=== PATIENT | female | born 1965 ===

== ENCOUNTER 2016-12-24 06:29 | Inpatient (IN) | payer OTHER ==
[2016-12-20 09:29] VITALS: BMI 35.3
[2016-12-24] MEDS ORDERED: Midazolam 2 MG/2 ML VIAL ONE (08:06)
[2016-12-24] MEDS ORDERED: Propofol 10 mg/ml Inj (20 ML) ONE (08:06)
[2016-12-24] MEDS ORDERED: ceFAZolin IV 1 gm in Dextrose 0 ML IVPB ONE (08:12)
[2016-12-24] MEDS ORDERED: Succinylcholine Chloride 20 mg/ml Syr (5 ml) IV ONE (08:13)
[2016-12-24] MEDS ORDERED: Rocuronium 10 mg/ml (5 ml) ONE (08:13)
[2016-12-24] MEDS ORDERED: Lactated Ringer's 1,000 ML IV ONE ×2 (08:15→10:00)
[2016-12-24] MEDS ORDERED: metroNIDAZOLE IV 500 mg/100 ml 100 ML ONE (08:18)
[2016-12-24] MEDS ORDERED: ceFAZolin IV 1 gm in Dextrose 50 ML IVPB ONE ×2 (08:23→08:24)
[2016-12-24] MEDS ORDERED: Phenylephrine 10 mg/ml Inj ONE (09:31)
[2016-12-24] MEDS ORDERED: Neostigmine Methylsulfate 3mg/3ml Syringe IV ONE (09:52)
--- NOTE | 2016-12-24 10:33 | OP ---
PROCEDURE DATE: 12/24/2016 PREOPERATIVE DIAGNOSIS: Abnormality at base of appendiceal orifice. POSTOPERATIVE DIAGNOSIS: Abnormality at base of appendiceal orifice. PROCEDURE CARRIED OUT: Right cecectomy. SURGEON: Kahlil Ponce Jr., MD. PROPERTY AND EQUIPMENT CLERK: Dr. Garcia and Dr. Darwin Gross, residents. ANESTHESIOLOGIST: Mr. Roth. INDICATIONS: A 51-year-old woman found to have an abnormality at the base of her appendix. OPERATIVE FINDINGS: General abdominal exploration was unremarkable. The left ovary, however, was up against the anterior abdominal wall, and there were extensive intra-abdominal adhesions at the umbil icus. The liver and the rest of the viscera that were identified appeared normal. There was no evid ence of any abnormality in her liver that we could see, or on the rest of the peritoneal cavity excep t for the left ovary up against the abdominal wall. OPERATIVE FINDINGS: The appendix was mobilized. The base of the appendix, including the cecum was a mputated, and at this time, the margins appeared to be relatively close when we examined the specimen , but there was no evidence of any tumor at the base of the cecum. We were able to easily put a clam p through this without any abnormalities being visible. We then turned our attention and removed and a larger portion of the cecum with an additional margin being taken, and no gross abnormalities being detected. After this had been done, we then checked th is again and again for hemostasis, and there was no question as to hemostasis, as the blood loss was approximately 15 mL, and we then closed the ports, which had been placed. DESCRIPTION OF PROCEDURE: The patient was given general anesthesia, intravenous antibiotics. Huerta catheter inserted. Three trocars were inserted initially ____ a 5-mm trocar just to the left of midl ine to visualize the abdominal cavity, and used a Veress needle. After we had done this, we placed 2 additional trocars to allow us to have good triangulated vision of the cecal area. The appendix was grasped and visualized, mobilized up into the anterior portion of the abdominal cavity. The entranc e of the ileum into the cecum was identified, and then this was divided relatively close to the appen hitesh. When we examined the specimen, there was no abnormality detected in the same. We then went to further with an additional margin of approximately an inch. This was not examined, b ut simply taken as an additional margin. After checking again for hemostasis and removing the irriga tion fluid, we then closed the abdomen. Prior to beginning this, there were extensive adhesions at t he umbilicus, which had to be lysed. So the procedure carried out was right cecectomy. Partial removal of colon and lysis of adhesions in tra-abdominal. Kahlil Ponce Jr., MD cc:Landon Kilpatrick MD; Angelo Brock MD 56 TT: 12/24/2016 10:23:44 jn
[2016-12-24] MEDS ORDERED: Oxycodone/Acetaminophen 5/325 mg Tab PO PRN ×2 (10:36→10:41)
[2016-12-24] MEDS ORDERED: HYDROmorphone 0.5 mg/0.5 ml ISec IVP PRN ×2 (10:37→13:51)
[2016-12-24] MEDS ORDERED: Lactated Ringer's 1,000 ML IV SCH (10:45)
--- NOTE | 2016-12-24 10:52 | PCM.SURG1 ---
Surgeon's Initial Post Op Note - Surgeon's Notes Surgeon: Dr. Ponce Manager Of Warehouse: Dr. Garcia, Dr. Gross Type of Anesthesia: General Endo Pre-Operative Diagnosis: cecal polyp Operative Findings: see operative report Post-Operative Diagnosis: cecal polyp Operation Performed: laparoscopic lysis of adhesions, appendectomy and partial cecectomy Specimen/Specimens Removed: appendix and portion of cecum Estimated Blood Loss: EBL {In ML}: 15 Blood Products Given: N/A Drains Used: No Drains Post-Op Condition: Good Date of Surgery/Procedure: 12/24/16 Time of Surgery/Procedure: 10:52
[2016-12-24] MEDS: (Novolin R) Insulin Human Regular 100 units/ml vial SC SCH ×2 (11:59→22:35)
[2016-12-24] MEDS ORDERED: HYDROmorphone 0.5 mg/0.5 ml ISec ONE (13:54)
[2016-12-24] MEDS ORDERED: Sodium Chloride 0.9% 1,000 ML IV ONE (16:00)
[2016-12-24] MEDS: ceFAZolin IV 1 gm in Dextrose 50 ML IVPB SCH (16:54)
[2016-12-24] MEDS: metroNIDAZOLE IV 500 mg/100 ml 100 ML IVPB SCH (17:20)
[2016-12-24] MEDS: Sodium Chloride 0.9% 1,000 ML IV SCH (21:08)
[2016-12-25] MEDS: metroNIDAZOLE IV 500 mg/100 ml 100 ML IVPB SCH (00:14)
[2016-12-25] MEDS: ceFAZolin IV 1 gm in Dextrose 50 ML IVPB SCH ×2 (00:14→09:20)
[2016-12-25] MEDS: Sodium Chloride 0.9% 1,000 ML IV SCH ×2 (02:45→05:47)
[2016-12-25 06:21] LABS: BASO % 0.2 % (0.0-2.0); EOS # 0.1 K/uL (0.0-0.7); EOS % 0.6 % (0.0-4.0); HEMATOCRIT 40.9 % (34.0-47.0); LYMPH # 1.8 K/uL (1.0-4.3); MEAN CELL VOLUME 84.9 fL (81.0-99.0); MEAN CORPUSCULAR HEMOGLOBIN 28.4 pg (27.0-31.0); MEAN CORPUSCULAR HGB CONC 33.5 g/dL (33.0-37.0); MEAN PLATELET VOLUME 9.5 fL (7.2-11.7); MONO # 0.6 K/uL (0.0-0.8); MONO % 5.7 % (0.0-10.0); RED CELL DISTRIBUTION WIDTH 14.9 % (11.5-14.5); WHITE BLOOD COUNT 10.6 K/uL (4.8-10.8)
[2016-12-25 06:29] LABS: CHLORIDE 99 mmol/L (98-107); SODIUM 141 mmol/L (132-148)
[2016-12-25 06:31] LABS: BILIRUBIN,TOTAL 0.8 mg/dL (0.2-1.3); GFR AFRICAN-AMERICAN > 60
[2016-12-25 06:32] LABS: ALB/GLOB RATIO 1.2 (1.0-2.1); ALKALINE PHOSPHATASE 40 U/L (38-126); ALT/SGPT 35 U/L (9-52); AST/SGOT 17 U/L (14-36); BLOOD UREA NITROGEN 13 mg/dL (7-17); CARBON DIOXIDE 28 mmol/L (22-30); GLUCOSE,RANDOM 119 mg/dL (65-105); TOTAL PROTEIN 5.9 g/dL (6.3-8.3)
[2016-12-25 06:33] LABS: CALCIUM 8.2 mg/dl (8.6-10.4)
[2016-12-25] MEDS: (Novolin R) Insulin Human Regular 100 units/ml vial SC SCH ×2 (07:47→11:50)
[2016-12-25 08:02] VITALS: BP 178/97; PULSE 65; RESP 18; TEMP 99.2; O2SAT 94
[2016-12-25] MEDS ORDERED: Enoxaparin 40 mg Syringe SC SCH (10:00)
--- NOTE | 2016-12-25 11:35 | CP.PCM.PN ---
Subjective - Date & Time of Evaluation Date of Evaluation: 12/25/16 Time of Evaluation: 11:32 - Subjective Subjective: Surgery: Dr. Ponce Patient doing well today. She is requesting to go home. Pain controlled. Diet tolerated. Denies n/v/f/c. Patient has been OOB w/o difficulty. Objective - Vital Signs/Intake and Output Vital Signs (last 24 hours): Temp Pulse Resp BP Pulse Ox 99.2 F 65 18 178/97 H 94 L 12/25/16 07:27 12/25/16 07:27 12/25/16 07:27 12/25/16 09:19 12/25/16 07:27 Intake and Output: 12/25/16 12/25/16 06:59 18:59 Intake Total 1200 Balance 1200 - Medications Medications: Current Medications Acetaminophen (Tylenol 325mg Tab) 650 mg PO Q6 PRN PRN Reason: Fever >100.4 F Last Admin: 12/25/16 08:11 Dose: 650 mg Enalapril Maleate (Vasotec) 20 mg PO DAILY [facility] Last Admin: 12/25/16 09:19 Dose: 20 mg Enoxaparin Sodium (Lovenox) 40 mg SC DAILY [facility] Last Admin: 12/25/16 09:19 Dose: 40 mg Famotidine (Pepcid) 20 mg PO BID [facility] Last Admin: 12/25/16 09:20 Dose: 20 mg Insulin Human Regular (Novolin R) 0 unit SC [facility] PRN Reason: Protocol Last Admin: 12/25/16 07:47 Dose: Not Given Metformin HCl (Glucophage) 500 mg PO DAILY@0800 [facility] Last Admin: 12/25/16 08:10 Dose: 500 mg Morphine Sulfate (Morphine) 4 mg IVP Q4H PRN PRN Reason: Pain, severe (8-10) Last Admin: 12/24/16 21:03 Dose: 4 mg Ondansetron HCl (Zofran Inj) 4 mg IVP Q4 PRN PRN Reason: Nausea/Vomiting Last Admin: 12/25/16 01:09 Dose: 4 mg Oxycodone/Acetaminophen (Percocet 5/325 Mg Tab) 2 tab PO Q4 PRN PRN Reason: Pain, severe (8-10) Stop: 12/27/16 10:37 Oxycodone/Acetaminophen (Percocet 5/325 Mg Tab) 1 tab PO Q4H PRN PRN Reason: Pain, moderate (4-7) Stop: 12/27/16 10:42 - Labs Labs: 12/25/16 06:07 12/25/16 06:07 - Constitutional Appears: Well, Non-toxic, No Acute Distress - Head Exam Head Exam: ATRAUMATIC, NORMOCEPHALIC - Eye Exam Eye Exam: EOMI, Normal appearance - ENT Exam ENT Exam: Mucous Membranes Moist - Respiratory Exam Respiratory Exam: NORMAL BREATHING PATTERN. absent: Respiratory Distress - Cardiovascular Exam Cardiovascular Exam: REGULAR RHYTHM. absent: Tachycardia - GI/Abdominal Exam GI & Abdominal Exam: Soft. absent: Distended, Guarding, Rigid, Tenderness, Rebound Additional comments: dressing CDI - Extremities Exam Extremities Exam: Normal Inspection. absent: Calf Tenderness - Neurological Exam Neurological Exam: Alert, Awake, Oriented x3 - Psychiatric Exam Psychiatric exam: Normal Affect, Normal Mood Assessment and Plan - Assessment and Plan (Free Text) Assessment: 51 y/o female s/p laparoscopic appendectomy w/ partial cecectomy pod1 Plan: -reg diet for lunch -if tolerates can d/c home -f/u w/ Dr. Ponce in 1-2 weeks -call office for appt -can remove overlying bandaid tomorrow -leave steri strips in place -can shower tomorrow, do not bathe or soak incisions -resume all home meds -d/w Dr. Rosario GARNERcheyenne PGY1
--- NOTE | 2016-12-25 11:56 | CARD ---
APPROVED REPORT EKG Measurement Heart [id number] <Conclusion> Normal sinus rhythm Possible Inferior infarct, age undetermined Abnormal ECG
== END 2016-12-25 15:15 | disposition home or self-care (01) | DRG 331 ==
LOC: C.9S 06:29 → EDSTATUS 07:45 → C.6T 20:28
PROVIDERS: ADMIT Surgery Vascular Surgery; ATTEND Surgery Vascular Surgery
PROC: 0DNW4ZZ Release Peritoneum, Percutaneous Endoscopic Approach (ICD-10-PCS; 2016-12-24)
PROC: 0DBH4ZZ Excision of Cecum, Percutaneous Endoscopic Approach (ICD-10-PCS; principal; 2016-12-24 07:45)
DX: K38.8 Other specified diseases of appendix (principal); K66.0 Peritoneal adhesions (postprocedural) (postinfection); N83.8 Other noninflammatory disorders of ovary, fallopian tube and broad ligament